=== PATIENT | male | born 1980 | race Caucasian/White ===

== ENCOUNTER → 2019-11-28 | Outpatient (CLI) | payer OTHER ==
[2016-05-13 09:50] VITALS: BP 115/67
[~2019-11-28] MED LIST: PANT40TA77 PO
--- NOTE | 2019-11-28 17:31 | RAD ---
EXAM: MRI left elbow without contrast DATE: 11/28/2019 INDICATION: Elbow pain, tendon dysfunction. COMPARISON: None TECHNIQUE: Multiplanar, multisequence imaging of the left elbow without contrast. FINDINGS: Bones and cartilage: Marrow signal is normal. No acute fracture. Articular cartilage is intact. No joint effusion. Ligaments: Ulnar collateral ligament, lateral ulnar collateral ligament, and radial collateral ligaments are intact. Tendons: There is partial disruption of the distal biceps tendon which is thickened and increased in signal with surrounding fluid and edema. There appear to be some abnormal but intact fibers inserting on the radial tuberosity. No retraction of the tendon. The brachialis tendon, distal triceps tendon, and common flexor and extensor tendon origins are intact. Other: Muscles and subcutaneous soft tissues are normal. Median, radial, and ulnar nerves are normal. IMPRESSION:Partial tear of the distal biceps tendon. Electronically signed by: Maci Bhandari MD (11/28/2019 5:29 PM) [id number]
== END | disposition home or self-care (01) ==
LOC: MRI 16:04
PROVIDERS: ATTEND Physician Assistant Medical
DX: S46.212A Strain of muscle, fascia and tendon of other parts of biceps, left arm, initial encounter (principal); X58.XXXA Exposure to other specified factors, initial encounter; Y93.89 Activity, other specified; Y92.89 Other specified places as the place of occurrence of the external cause; Y99.8 Other external cause status
CPT/HCPCS: 73221